=== PATIENT | female | born 1960 | race Hispanic/Latino ===

== ENCOUNTER 2016-08-12 21:45 | Emergency (ER) | payer OTHER ==
[~2016-08-12 21:45] MED LIST: BNZN100C PO; METO50TA PO; SYN25 PO
[2016-08-12 22:03] VITALS: BP_SYST 139; RESP 16; O2SAT 100
--- NOTE | 2016-08-12 22:40 | ED.REPORT ---
HPI-General Illness Date of Service Aug 12, 2016 ED Provider: The patient is a 56 year old female who presents to the ED complaining of bilateral ear pain/pressure for the last two weeks. Associated symptoms of sore throat and inability to take a deep breath. She denies history of asthma, nausea , vomiting, cough, fever, congestion, or any other symptoms at this time. Nursing Notes Stated Complaint: EAR AND THROAT PAIN Chief Complaint: ENT & Mouth Nursing Notes Reviewed: Yes Allergies: Coded Allergies: No Known Allergies (Unverified , 08/12/16) Scheduled Benzonatate-Expunged Drug, Do Not Renew! (Tessalon Pearles-Expunged Drug, Do Not Renew!) 100 Mg Capsule 1 CAP PO TID DO NOT CHEW Levothyroxine-Expunged Drug, Do Not Renew! (Synthroid-Expunged Drug, Do Not Renew!) 25 Mcg Tablet 25 MCG PO DAILYAC 0.025 MG = 25 MCG Metoprolol Tart-Expunged Drug, Do Not Renew! (Metoprolol Tart-Expunged Drug, Do Not Renew!) 50 Mg Tablet 75 MG PO BIDWM General Time Seen by MD: 22:39 Chief Complaint Ear pain Hx Obtained From: Patient Arrived By: Walk-in Sudden in Onset?: No Onset Occurred: More than a week ago... (2 weeks) Symptom Duration: Since onset Location: : Ear left: Ear right Quality: Painful Severity: Current: Mild Severity: Maximum: Moderate Recent Healthcare: No recent doctor visit, No recent hospitalization Similar Sx Previous: No Past Medical History Past Medical History None reported Past Surgical History None reported Smoking History Never Smoker Social History Alcohol Use: Denies alcohol use Drug Use: Denies drug use Ambulatory Status Independent Review of Systems Full Review of Systems Constitutional: Denies: Fever Ears / Nose / Throat: Reports: Earache left, Earache right, Sore throat, Denies: Nasal congestion Respiratory: Reports: Shortness of breath, Denies: Non-productive cough Cardiovascular: Denies: Chest pain GI: Denies: Abdominal pain, Diarrhea, Nausea, Vomiting Neurologic: Reports: Headache Complete sys rev & neg: except as marked. Physical Exam Vital Signs Vital Signs Date Time Temp Pulse Resp B/P Pulse Ox O2 Delivery O2 Flow Rate FiO2 08/13/16 00:53 18 99 Room Air 08/12/16 23:43 77 18 99 Room Air 08/12/16 22:03 36.1 84 16 139/ 100 Room Air Initial VS: Reviewed Neck: Supple, Non-tender, Full range of motion Cardiovascular: Regular rate & rhythm, Heart sounds normal, Intact distal pulses Abdomen / GI: Soft, Non-tender, No guarding, No rebound, No distention Back: No CVA tenderness Extremities: Vascular intact, Neuro intact, No swelling, No tenderness Skin: Warm, Dry, No cyanosis Neurologic: Alert, Oriented, Nonfocal Psychiatric: Mood/affect normal, Behavior normal, Normal thought content General/Constitutional: Awake, Alert, No acute distress Head / Eyes: Atraumatic, Normocephalic, PERRL, EOMI ENT: Atraumatic, Airway patent Congested looking Retracted TMs bilaterally without erythema Throat without erythema Respiratory / Chest: Atraumatic, Breath sounds = bilat, No respiratory distress Slightly hoarse while speaking, slight bronchospastic sound when speaking Re-Eval/Medical Decision Med Decision/Clinical Course Healthy 56-year-old presents with three weeks of nasal congestion and cough. Benign exam. No indication first flu swab after three weeks. Home with Afrin for relief of her nasal congestion, albuterol for relief of her chest congestion and cough. Follow-up with PCP. Source of Hx: Old records Time of Eval: 23:15 Re-Evaluation/Progress Note: Met with patient. Discussed diagnosis and plan for discharge. Follow-up instructions and RTER warnings given. The patient understands and agrees to the plan. All questions addressed. Counseled Regarding: Diagnosis, Need for follow-up, When/why to return to ED Discharge & Departure Primary Impression: Upper respiratory infection URI type: unspecified URI Qualified Code: J06.9 - Acute upper respiratory infection, unspecified Additional Impression: Reactive airway disease that is not asthma Disposition: Home Discharge Condition All VS Reviewed: Yes Condition: Stable Patient Instructions: Upper Respiratory Infection (ED) Additional Instructions: Albuterol puffer two puffs every four hours if needed for cough. Afrin spray nightly for four nights only then stop. Drink plenty of fluids and stay well-hydrated. On a vaporizer in your room air moist and your secretions moist. Return if any immediate issues. Follow-up with your doctor in the office. Referrals: Jay Roberto MD (PCP) Scribe Attestation Portions of this note were transcribed by Bill Martin. I, Dr. Eagle, personally performed the history, physical exam, and medical decision-making; I reviewed and confirmed the accuracy of the information in the transcribed note. Signed by: Claribel Monae, 08/13/16, 00:41. copies to: Jay Roberto MD, Christopher W MD Aug 12, 2016 22:40 BILL MARTIN Aug 12, 2016 23:32
[2016-08-12] MEDS ORDERED: Albuterol-Ipratropium 3 mL Inhalation Solution NEB ONE (23:30)
[2016-08-12] MEDS ORDERED: _Albuterol-HFA 60 Puff Inhaler INHALATION PRN (23:30)
[2016-08-12 23:43] VITALS: PULSE 77; RESP 18; O2SAT 99
[2016-08-13 00:53] VITALS: RESP 18; O2SAT 99
== END 2016-08-13 00:54 | disposition home or self-care (01) ==
LOC: SED 21:45
DX: J06.9 Acute upper respiratory infection, unspecified (principal); J98.9 Respiratory disorder, unspecified; I10 Essential (primary) hypertension
CPT/HCPCS: 94640; 94664; 99283; J7620